=== PATIENT | female | born 1960 | race Caucasian/White ===

== ENCOUNTER → 2019-09-09 | Outpatient (CLI) | payer BC ==
[~2019-09-09] MED LIST: ALLEGRA ALLERGY60 MG PO; Adipex-P37.5 MG PO; CITA20 PO; LOSA25 PO; LOVA40 PO; OTC ALLERGY PO; Omeprazole20 M1 PO; Percocet 5-3251 EACH PO
== END | disposition home or self-care (01) ==
LOC: LAB SHORT 16:31 → LAB EV 16:31
DX: N39.0 Urinary tract infection, site not specified (principal)
CPT/HCPCS: 87077; 87086; 87186

== ENCOUNTER → 2023-12-11 | Outpatient (CLI) | payer BC ==
[2023-12-11 16:10] LABS: BASOPHILS ABSOLUTE AUTO 0.05 K/mm3 (0.00-0.23); BASOPHILS PERCENT AUTO 1 % (0-2); EOSINOPHILS ABSOLUTE AUTO 0.11 K/mm3 (0.00-0.68); EOSINOPHILS PERCENT AUTO 2 % (0-6); Hematocrit 41.9 % (33.0-51.0); IMMATURE GRAN ABSOLUTE AUTO 0.01 K/mm3 (0.00-0.10); IMMATURE GRAN PERCENT AUTO 0 % (0-1); LYMPHOCYTES ABSOLUTE AUTO 2.22 K/mm3 (0.84-5.20); LYMPHOCYTES PERCENT AUTO 34 % (21-46); MONOCYTES ABSOLUTE AUTO 0.53 K/mm3 (0.16-1.47); MONOCYTES PERCENT AUTO 8 % (4-13); Mean Corpuscular HGB 31.2 pg (26.0-34.0); Mean Corpuscular HGB Conc 33.4 g/dL (31.5-36.5); Mean Corpuscular Volume 93 fL (80-100); Mean Platelet Volume 10.4 fL (9.1-12.4); NEUTROPHILS ABSOLUTE AUTO 3.59 K/mm3 (1.96-9.15); NEUTROPHILS PERCENT AUTO 55 % (41-73); Platelet Count 150 K/mm3 (150-400); RDW Standard Deviation 41.3 fL (35.1-46.3); Red Blood Cell Count 4.49 M/mm3 (3.80-5.20); White Blood Cell Count 6.51 K/mm3 (4.00-11.30)
[2023-12-11 16:23] LABS: Albumin, Blood 3.7 g/dL (3.4-5.0); Albumin/Globulin Ratio 0.9 (0.8-1.8); Bilirubin, Total 0.4 mg/dL (0.1-1.0); Bun/Creatinine Ratio 13.5 (12.0-20.0); Calcium, Blood 9.7 mg/dL (8.5-10.1); Creatinine, Blood 0.96 mg/dL (0.40-1.00); Potassium, Blood 4.4 mmol/L (3.5-5.5); Total Protein, Blood 7.7 g/dL (6.4-8.2)
== END | disposition home or self-care (01) ==
LOC: LAB SHORT 16:04
PROVIDERS: Physician Assistant
DX: M54.50 Low back pain, unspecified (principal); R82.81 Pyuria
CPT/HCPCS: 80053; 84484; 85025; 85379; 87077; 87086; 87186

== ENCOUNTER 2024-06-06 08:32 | Day surgery (SDC) | payer BC ==
[~2024-06-06] VITALS: Ht 154.9 cm; Wt 94.4 kg
[2024-06-06] VITALS (13 sets, daily range): BP systolic 113–134; BP diastolic 53–100
[~2024-06-06 08:32] MED LIST changes: +Acetaminophen 500 MG Tab PO SCH; +CeFAZolin Sodium 2,000 MG in NS 100 ML IV SCH; +Chlorhexidine Mouth Care 15 ML UDC MT SCH; +Lactated Ringer's 1,000 ML IV SCH; +METF500 PO; +MOBIC15 MG PO; +OLME5TAB PO; +Ropivacaine 0.5% HCl/Pf 123.125 MG,EPINEPHrine HCL 0.25 MG,Ketorolac Tromethamine 15 MG... INFIL SCH; +Tranexamic Acid 100 ML IV SCH; +VICTOZA 2-0.6 MG/0.1 SC; +Vancomycin HCL 1,000 MG in NS 250 ML IV SCH
--- NOTE | 2024-06-06 08:47 | NUR ---
Ambulatory in Day SurgeryPre-Op teaching done. Pt verbalizes understanding. History, Chart, Medications and Allergies reviewed before start of procedure.Patient confirms NPO status and agrees with scheduled surgery. PT REPORTS TAKING 5 DAYS OF SHOWERS FOR +[facility]
[2024-06-06] MEDS ORDERED: MERIBIN5 MG (09:06)
[2024-06-06] MEDS ORDERED: TraMADol HCl 50 MG Tab PO PRN (10:10)
[2024-06-06] MEDS ORDERED: Vancomycin HCl 1000 MG ADDvantage ONE (10:10)
[2024-06-06] MEDS ORDERED: Promethazine HCl 25 MG Tab PO PRN (10:10)
[2024-06-06] MEDS ORDERED: Ondansetron HCl 2 MG / ML 2ML Vial IV PRN (10:10)
[2024-06-06] MEDS ORDERED: Metoclopramide HCl 5MG / ML 2ML Vial IV PRN (10:10)
[2024-06-06] MEDS ORDERED: HYDROmorphone HCl/Pf 1MG SYR IV PRN (10:15)
[2024-06-06] MEDS ORDERED: DiphenhydrAMINE HCL 25 MG Cap PO PRN (10:15)
[2024-06-06] MEDS ORDERED: Bisacodyl 10 MG Supp PR PRN (10:15)
[2024-06-06] MEDS ORDERED: Lactated Ringer's 1,000 ML IV SCH (10:20)
[2024-06-06] MEDS ORDERED: Magnesium Hydroxide Conc 10 ML UDC PO PRN (10:20)
[2024-06-06] MEDS ORDERED: propofoL 150 ML IV ONE (10:21)
[2024-06-06] MEDS ORDERED: Ondansetron HCl 2 MG / ML 2ML Vial ONE (11:06)
[2024-06-06] MEDS ORDERED: Dexamethasone Sod Phos 10 MG/ML 1ML VIAL ONE (11:06)
[2024-06-06] MEDS ORDERED: Phenylephrine HCl 100 MCG/ML-NS 10MLSYR (1MG/10ML) ONE ×3 (11:06→14:08)
[2024-06-06] MEDS ORDERED: Insulin Regular 100 UNIT/ML 10ML Vial SC SCH (11:30)
[2024-06-06] MEDS ORDERED: Ketorolac Tromethamine 15mg Vial IV SCH (12:00)
[2024-06-06] MEDS ORDERED: ePHEDrine Sulfate 50 MG/ML 1ML Injection ONE (13:50)
[2024-06-06] MEDS ORDERED: MetFORMIN HCl 500 mg PO SCH (14:00)
[2024-06-06] MEDS ORDERED: Acetaminophen 500 MG Tab PO SCH (16:00)
[2024-06-06] MEDS ORDERED: CeFAZolin Sodium 2,000 MG in NS 100 ML IV SCH (18:00)
--- NOTE | 2024-06-06 19:25 | NUR ---
SHIFT SUMMARY POD0 R TKA, A/OX4, VSS, TOLERATING PO, WORKED WITH THERAPY, VOIDED POST OP BUT MISSED THE MEASURING HAT, DRESSING C/D/I, NO CONCERS AT THIS TIME. NO ACUTE EVENTS THIS SHIFT, CALL LIGHT IN REACH.
[2024-06-06] MEDS ORDERED: Losartan Potassium 25 MG Tab PO SCH ×2 (21:00)
[2024-06-06] MEDS ORDERED: Docusate Sodium 100 MG Cap PO SCH (21:00)
[2024-06-06] MEDS ORDERED: Vancomycin HCL 1,000 MG in NS 250 ML IV SCH (22:00)
[2024-06-07 04:36] VITALS: BP 111/68
[2024-06-07 05:07] LABS: BASOPHILS ABSOLUTE AUTO 0.03 K/mm3 (0.00-0.23); BASOPHILS PERCENT AUTO 0 % (0-2); EOSINOPHILS ABSOLUTE AUTO 0.02 K/mm3 (0.00-0.68); EOSINOPHILS PERCENT AUTO 0 % (0-6); Hemoglobin 11.3 g/dL (11.5-16.0); IMMATURE GRAN ABSOLUTE AUTO 0.03 K/mm3 (0.00-0.10); IMMATURE GRAN PERCENT AUTO 0 % (0-1); LYMPHOCYTES ABSOLUTE AUTO 1.41 K/mm3 (0.84-5.20); LYMPHOCYTES PERCENT AUTO 12 % (21-46); MONOCYTES ABSOLUTE AUTO 0.72 K/mm3 (0.16-1.47); MONOCYTES PERCENT AUTO 6 % (4-13); Mean Corpuscular HGB 30.6 pg (26.0-34.0); Mean Corpuscular HGB Conc 34.2 g/dL (31.5-36.5); Mean Corpuscular Volume 89 fL (80-100); NEUTROPHILS PERCENT AUTO 81 % (41-73); Platelet Count 119 K/mm3 (150-400); RDW Coefficient Variation 11.8 % (11.7-14.2); RDW Standard Deviation 38.2 fL (35.1-46.3); Red Blood Cell Count 3.69 M/mm3 (3.80-5.20); White Blood Cell Count 11.41 K/mm3 (4.00-11.30)
[2024-06-07 05:44] LABS: Bun/Creatinine Ratio 23.3 (12.0-20.0); Calcium, Blood 8.2 mg/dL (8.5-10.1); Creatinine, Blood 0.52 mg/dL (0.40-1.00); Magnesium, Blood 2.1 mg/dL (1.6-2.4); Potassium, Blood 4.2 mmol/L (3.5-5.5)
[2024-06-07 07:07] VITALS: BP 127/59
--- NOTE | 2024-06-07 07:45 | NUR ---
SHIFT SUMMARY NOC. PT POD 1 FOR RIGHT TOTAL KNEE. PT'S SID WRAP IS C/D/I WITH POLAR PACK IN PLACE. PT AMBULATES WELL TO BR WITH FWW, GAIT BELT, AND SBA. PT VOIDING URINE AND TOLERATING PO. PT MEDICATED FOR PAIN WITH REPORTED RELIEF OF SX. PT RESTED WITH EYES CLOSED AND CALL LIGHT IN REACH.
[2024-06-07] MEDS ORDERED: Loratadine 10 MG Tab PO SCH (09:00)
[2024-06-07] MEDS ORDERED: Trimethoprim/Sulfamethoxazole DS Tab PO SCH (09:00)
[2024-06-07] MEDS ORDERED: Vancomycin HCL 1,000 MG in NS 250 ML IV SCH (09:00)
[2024-06-07] MEDS ORDERED: Aspirin 81 MG Chew PO SCH (09:00)
[2024-06-07] MEDS ORDERED: Atorvastatin 10 MG Tab PO SCH (09:00)
[2024-06-07] MEDS ORDERED: Biotin 5 MG Cap PO SCH (09:00)
[2024-06-07] MEDS ORDERED: ATOR20 PO (09:28)
[2024-06-07] MEDS ORDERED: PROM25 PO (09:29)
[2024-06-07] MEDS ORDERED: ASPI81CH PO (09:29)
[2024-06-07] MEDS ORDERED: SULTRIDS PO (09:30)
[2024-06-07] MEDS ORDERED: TRAM50 PO (09:36)
--- NOTE | 2024-06-07 11:36 | NUR ---
DISCARGE SUMMARY POD1 R TKA, A/OX4, VSS, TOLERATING PO, AMBULATING WELL, VOIDING INDEPENDENTLY, DRESSING CHANGED THIS AM BY ORTHO MD AT BEDSIDE, AQUACELL PLACED AND WAS C/D/I AT TIME OF DISCHARGE, PAIN WELL MANAGED. DISCUSSED DISCHARGE INFORMATION WITH HER AND FAMILY INCLUDING HOME CARE, MEDICATIONS, AND FOLLOW UP APPOINTMENTS, IV ACCESS REMOVED, NO QUESTIONS AT THIS TIME, PACKED UP PERSONAL ITEMS, ESCORTED OUT VIA WC TO PRIVATE AUTO TO GO HOME.
[2024-06-07] MEDS ORDERED: LIRAGLUTIDE 0.6 MG/0.1 ML SC SCH (12:00)
== END 2024-06-07 11:20 | disposition home or self-care (01) ==
LOC: ORSCMMR 08:32 → ORD 10:45 → SURS 13:05 → ORSCMMR 13:05 → SURS 06-07 11:20 → ORSCMMR 06-07 11:20
PROVIDERS: Orthopaedic Surgery
PROC: 0SRC0JA Replacement of Right Knee Joint with Synthetic Substitute, Uncemented, Open Approach (ICD-10-PCS; principal; 2024-06-06 10:45)
DX: M17.11 Unilateral primary osteoarthritis, right knee (principal); I10 Essential (primary) hypertension; E11.9 Type 2 diabetes mellitus without complications; J45.909 Unspecified asthma, uncomplicated; Z68.39 Body mass index [BMI] 39.0-39.9, adult; Z79.84 Long term (current) use of oral hypoglycemic drugs; Z79.899 Other long term (current) drug therapy
CPT/HCPCS: 36415; 73560-RT; 80048; 82947; 83735; 85025; 97110; 97116; 97162; 97530; A9270; C1713; C1776; J0171; J0690; J0735; J1100; J1885; J2371; J2405; J2704; J2795; J3370; J7050; J7120

== ENCOUNTER 2024-08-06 11:39 | Day surgery (SDC) | payer BC ==
[~2024-08-06] VITALS: Ht 154.9 cm; Wt 89.6 kg
[~2024-08-06 11:39] MED LIST changes: +ASPI81CH PO; +ATOR20 PO; -Acetaminophen 500 MG Tab PO SCH; -CeFAZolin Sodium 2,000 MG in NS 100 ML IV SCH; -Chlorhexidine Mouth Care 15 ML UDC MT SCH; +Lactated Ringer's 1,000 ML IV ONE; -Lactated Ringer's 1,000 ML IV SCH; +MERIBIN5 MG; +PROM25 PO; -Ropivacaine 0.5% HCl/Pf 123.125 MG,EPINEPHrine HCL 0.25 MG,Ketorolac Tromethamine 15 MG... INFIL SCH; +SULTRIDS PO; +TRAM50 PO; -Tranexamic Acid 100 ML IV SCH; -Vancomycin HCL 1,000 MG in NS 250 ML IV SCH
[2024-08-06] MEDS ORDERED: propofoL 20 ML IV ONE (12:59)
[2024-08-06] MEDS ORDERED: Midazolam HCl 1MG / ML 2ML Vial ONE (12:59)
[2024-08-06] MEDS ORDERED: FentaNYL Citrate 50 MCG/ML 2 ML Injection ONE ×2 (12:59→14:17)
[2024-08-06] MEDS ORDERED: Lactated Ringer's 1,000 ML IV ONE (13:00)
[2024-08-06] MEDS ORDERED: ALBUTEROL SULFATE HF (13:00)
[2024-08-06] MEDS ORDERED: SPIRONOLACTONE50 MG PO (13:01)
[2024-08-06] MEDS ORDERED: FUROSEMIDE20 MG PO (13:01)
--- NOTE | 2024-08-06 14:31 | NUR ---
08/06/24 1431 Deborah Gan PT C/O PAIN TO R KNEE. PT STATED THAT HER PAIN LEVEL WAS A 8/10. PT EDUCATION ON WHAT A 10/10 WOULD BE LIKE GIVING . PT STATED THAT SHE HASN'T HAD ANY CHILDREN, BUT JUST WANTED TO PUT IT IN PERSPECTIVE FOR PT TO UNDERSTAND THE PAIN SCALE. AT 1425: 25MCG OF FENTANYL GIVEN SLOWLY VIA IV PUSH. AT 1428: 25MCG FENTANYL GIVEN SLOWLY VIA IV. 1430: AFTER RE-ASSESSING PT LEVEL, PT STATED THAT HER PAIN WAS NOW A 3-4/10, WHICH IS A TOLERABLE LEVEL THAT SHE WANTS TO BE AT.
[2024-08-06] MEDS ORDERED: OxyCODONE 5 mg/Acetamin 325 mg TABLET ONE (15:00)
[2024-08-06 15:19] VITALS: BP 133/73
== END 2024-08-06 15:40 | disposition home or self-care (01) ==
LOC: ORSCSDS 11:39
PROVIDERS: Orthopaedic Surgery
PROC: 0SSCXZZ Reposition Right Knee Joint, External Approach (ICD-10-PCS; principal; 2024-08-06 13:00)
DX: M24.661 Ankylosis, right knee (principal); Z96.651 Presence of right artificial knee joint; I10 Essential (primary) hypertension; J45.909 Unspecified asthma, uncomplicated; E11.9 Type 2 diabetes mellitus without complications; E66.9 Obesity, unspecified; Z68.37 Body mass index [BMI] 37.0-37.9, adult; Z79.84 Long term (current) use of oral hypoglycemic drugs; Z79.899 Other long term (current) drug therapy
CPT/HCPCS: 82947; A9270; J2250; J2704; J3010; J7120

== ENCOUNTER 2025-09-11 12:37 | Day surgery (SDC) | payer BC ==
[2025-09-11] VITALS (18 sets, daily range): BP systolic 84–135; BP diastolic 55–106
[~2025-09-11] VITALS: Ht 154.9 cm; Wt 80.9 kg
[~2025-09-11 12:37] MED LIST changes: +ALBUTEROL SULFATE HF; +FUROSEMIDE20 MG PO; -Lactated Ringer's 1,000 ML IV ONE; +OZEMPIC1 MG/0.72; +PREG25 PO; +SPIRONOLACTONE50 MG PO
[2025-09-11] MEDS ORDERED: ALBU90OI INH (13:41)
[2025-09-11] MEDS ORDERED: PREG75 PO (13:44)
--- NOTE | 2025-09-11 14:03 | NUR ---
Ambulatory in Day Surgery History, Chart, Medications and Allergies reviewed before start of procedure. Pre-Op teaching done. Pt verbalizes understanding. Patient States Post-Procedure ride home has been arranged.
--- NOTE | 2025-09-11 15:15 | NUR ---
09/11/25 Danika Richardson CONFIRMED AND REVIEWED H&P, MEDCICATIONS, ALLERGIES, MEDICAL HISTORY, RESPIRATORY HISTORY, VITAL SIGNS, 3-LEAD EKG, CONSENTS, AND PHYSICIAN ORDERS. PATIENT CONFIRMS NPO STATUS AND AGREES WITH SCHEDULED PROCEDURE. MONITOR INTACT WITH CONTINUOUS PULSE OXIMETRY, CAPNOGRAPHY, 3-LEAD EKG, INTERMITTENT BP. SUPPLEMENTAL O2 TO BE TITRATED THROUGHOUT PROCEDURE TO MAINTAIN O2 SATURATION ABOVE 90%. PATIENT DETERMINED TO BE ASA APPROPRIATE FOR PROPOFOL SEDATION PRIOR TO START OF PROCEDURE BY DR. CHILDERS
--- NOTE | 2025-09-11 15:47 | NUR ---
Patient States Post-Procedure ride home has been arranged. Discharged via wheelchair to private car for ride home. Discharge instructions reviewed with patient. Patient verbalizes understanding. Copy given to patient to take home.
== END 2025-09-11 23:00 | disposition home or self-care (01) ==
LOC: ORSCMMR 12:37
PROVIDERS: Family Medicine
PROC: 0DJD8ZZ Inspection of Lower Intestinal Tract, Via Natural or Artificial Opening Endoscopic (ICD-10-PCS; principal; 2025-09-11 14:30)
DX: Z12.11 Encounter for screening for malignant neoplasm of colon (principal); K64.4 Residual hemorrhoidal skin tags; K64.0 First degree hemorrhoids; E11.9 Type 2 diabetes mellitus without complications; I10 Essential (primary) hypertension; E78.5 Hyperlipidemia, unspecified; K74.60 Unspecified cirrhosis of liver; Z79.84 Long term (current) use of oral hypoglycemic drugs; Z79.85 Long-term (current) use of injectable non-insulin antidiabetic drugs; Z79.899 Other long term (current) drug therapy
CPT/HCPCS: 82947; J2704; J7120